=== PATIENT | female | born 1945 | race Caucasian/White ===

== ENCOUNTER 2017-05-07 09:51 | Emergency (ER) | payer MEDICARE, OTHER ==
--- NOTE | 2017-05-07 10:46 | EDM.PDOC ---
ED HPI GENERAL MEDICAL PROBLEM - General Chief Complaint: Lower Extremity Injury/Pain Stated Complaint: R FOOT INJURY Time Seen by Provider: 05/07/17 10:37 Source of Information: Reports: Patient History Limitations: Reports: No Limitations - History of Present Illness INITIAL COMMENTS - FREE TEXT/NARRATIVE: 71 y/o F with RLE injury. Was walking down steps and missed the last step, landing in an odd position on her R foot. States R foot and R knee twisted. She has pain in R knee, ankle, and foot. Able to bear weight but with some difficulty. Pain is mild at rest. Took aleve prior to coming in. Pain is sharp. Nonradiating. Worse with weight bearing, better with rest. No additional complaint. No additional injury or recent illness. Right Ankle Pain Score (Numeric/FACES): 3 - Related Data Allergies Allergy/AdvReac Type Severity Reaction Status Date / Time No Known Allergies Allergy Verified 05/07/17 10:16 Home Meds: Home Meds Ibuprofen 600 mg PO QID PRN #30 tablet 05/07/17 [Rx] LORazepam [Ativan] 0.5 mg PO Q12HR PRN 05/07/17 [History] Rosuvastatin [Crestor] 5 mg PO DAILY 05/07/17 [History] chlorproMAZINE [Thorazine] 30 mg PO DAILY 05/07/17 [History] oxyCODONE 5 mg PO QID PRN #24 tab 05/07/17 [Rx] Past Medical History - Past Health History Medical/Surgical History: Denies Medical/Surgical History HEENT History: Reports: Impaired Vision Cardiovascular History: Reports: High Cholesterol Psychiatric History: Reports: Anxiety - Past Surgical History GI Surgical History: Reports: Cholecystectomy Social & Family History - Family History Family Medical History: Noncontributory - Tobacco Use Smoking Status *Q: Never Smoker - Recreational Drug Use Recreational Drug Use: No Review of Systems - Review of Systems Review Of Systems: See Below Constitutional: Reports: No Symptoms Respiratory: Reports: No Symptoms Musculoskeletal: Reports: Leg Pain, Foot Pain Skin: Denies: Wound Neurological: Denies: Numbness, Tingling, Weakness ED EXAM, GENERAL - Physical Exam Exam: See Below Exam Limited By: No Limitations General Appearance: Alert, WD/WN, No Apparent Distress Eye Exam: Bilateral Eye: Normal Inspection Head: Atraumatic, Normocephalic Neck: Normal Inspection Respiratory/Chest: No Respiratory Distress Cardiovascular: Normal Peripheral Pulses Peripheral Pulses: 2+: Dorsalis Pedis (R) Extremities: Normal Inspection, Normal Range of Motion, Other (RLE: no knee effusion. Mild anterior TTP at patellar tendon insertion site, otherwise nontender. No tib/fib TTP. ankle with both medial and lateral malleolus TTP. no effusion. +mild diffuse midfoot TTP. no deformities or ecchymosis ) Neurological: Alert, Oriented, Normal Cognition, No Motor/Sensory Deficits Psychiatric: Normal Affect, Normal Mood Skin Exam: Warm, Dry, Intact, Normal Color, No Rash Course - Vital Signs Last Recorded V/S: Last Vital Signs Temp 36.4 C 05/07/17 10:12 Pulse 64 05/07/17 10:12 Resp 16 05/07/17 10:12 BP 132/68 05/07/17 10:12 Pulse Ox 95 05/07/17 10:12 - Orders/Labs/Meds Orders: Active Orders 24 hr Category Date Time Status Ankle Min 3V Rt [CR] Stat Exams 05/07/17 10:45 Taken Foot Comp Min 3V Rt [CR] Stat Exams 05/07/17 10:45 Taken Knee 3V Rt [CR] Stat Exams 05/07/17 10:45 Taken Tibia Fibula Rt [CR] Stat Exams 05/07/17 11:18 Taken DME for Discharge [COMM] Stat Oth 05/07/17 11:19 Ordered - Re-Assessments/Exams Free Text/Narrative Re-Assessment/Exam: 05/07/17 11:20 XR shows distal fibula fracture. XR foot/ankle and knee neg for additional injury. Will place in walking boot and follow up with ortho. Departure - Departure Time of Disposition: 11:51 Disposition: Home, Self-Care 01 Clinical Impression: Fracture of distal fibula Qualifiers: Encounter type: initial encounter Fracture type: closed Fracture morphology: unspecified fracture morphology Laterality: right Qualified Code(s): S82.831A - Other fracture of upper and lower end of right fibula, initial encounter for closed fracture - Discharge Information Prescriptions: Ibuprofen 600 mg PO QID PRN #30 tablet PRN Reason: Pain oxyCODONE 5 mg PO QID PRN #24 tab PRN Reason: Pain Referrals: Pascale Fitzpatrick MD [Primary Care Provider] - Forms: ED Department Discharge Additional Instructions: 1. Use walking boot until cleared by orthopedics 2. You may bear weight as tolerated. Use crutches as needed if it is painful to put weight on the foot. 3. Take ibuprofen and/or acetaminophen for pain. Take oxycodone as needed for severe pain. No driving or operating machinery when taking oxycodone - it may make you sleepy or confused. Use the lowest effective dose to adequately control your pain, this medication can be addictive when taken intermediate. 4. Follow up with the orthopedist of your choice for further care. Call [phone] if you'd like to schedule with a provider here. - My Orders Last 24 Hours: My Active Orders 05/07/17 10:45 Ankle Min 3V Rt [CR] Stat Foot Comp Min 3V Rt [CR] Stat Knee 3V Rt [CR] Stat 05/07/17 11:18 Tibia Fibula Rt [CR] Stat 05/07/17 11:19 DME for Discharge [COMM] Stat - Assessment/Plan Last 24 Hours: My Active Orders 05/07/17 10:45 Ankle Min 3V Rt [CR] Stat Foot Comp Min 3V Rt [CR] Stat Knee 3V Rt [CR] Stat 05/07/17 11:18 Tibia Fibula Rt [CR] Stat 05/07/17 11:19 DME for Discharge [COMM] Stat
--- NOTE | 2017-05-08 16:52 | CR ---
Right foot: Four views of the right foot were obtained. Comparison: No prior foot exam. Plantar spur is seen. Spur noted off the posterior calcaneus as well as calcification off the posterior calcaneus. Mild degenerative change is noted within the first MTP joint. Mild deformity is noted within the base of the proximal phalanx of the second toe with adjacent calcification which is felt compatible with old injury. Nothing acute is appreciated. Impression: 1. Findings as noted above. Nothing acute is appreciated on right foot study. Diagnostic code #2
--- NOTE | 2017-05-08 16:52 | CR ---
Right knee: AP, lateral and sunrise patellar views of the right knee were obtained. Comparison: No prior study. Mild medial joint space narrowing is seen. Mild degenerative change is noted within the patellofemoral joint. Equivocal lucent line on the sunrise view within the patella and difficult to exclude a nondisplaced fracture. Small joint effusion is seen. No additional bony abnormality is identified. Impression: 1. Difficult to completely exclude patellar fracture. CT exam could confirm or rule out if clinically needed. 2. Joint effusion and mild degenerative change. Diagnostic code #3
--- NOTE | 2017-05-08 16:52 | CR ---
Right tibia and fibula: Two views of the right tibia and fibula were obtained. Nondisplaced distal fibular fracture is seen. Mild degenerative change is noted within the knee. Calcaneal spurs are again seen. No additional bony abnormality is identified. Impression: 1. Nondisplaced distal fibular fracture and other incidental findings. Diagnostic code #2
--- NOTE | 2017-05-08 16:52 | CR ---
Right ankle: Four views of the right ankle were obtained. Comparison: No previous study. Fracture is identified within the distal fibula. Ankle mortise is symmetric. Plantar spur is noted. Spur noted off the posterior calcaneus as well as calcification within the distal Achilles tendon. No additional fracture or other abnormality is seen. Impression: 1. Nondisplaced fracture within the distal right fibula. 2. Other incidental findings. Diagnostic code #3
== END 2017-05-07 12:20 | disposition home or self-care (01) ==
LOC: JD.ED 09:51
DX: S82.831A Other fracture of upper and lower end of right fibula, initial encounter for closed fracture (principal); E78.00 Pure hypercholesterolemia, unspecified; F41.9 Anxiety disorder, unspecified; X50.1XXA Overexertion from prolonged static or awkward postures, initial encounter; W10.9XXA Fall (on) (from) unspecified stairs and steps, initial encounter; Z79.899 Other long term (current) drug therapy; Z90.49 Acquired absence of other specified parts of digestive tract
CPT/HCPCS: 73562-26-RT; 73562-RT; 73590-26-RT; 73590-RT; 73610-26-RT; 73610-RT; 73630-26-RT; 73630-RT; 99283; 99284

== ENCOUNTER 2019-09-13 15:51 | Emergency (ER) | payer MEDICARE, OTHER ==
[2019-09-13] MEDS ORDERED: Sodium Chloride 0.9% 1,000 ML IV SCH (16:00)
--- NOTE | 2019-09-13 16:05 | EDM.PDOC ---
ED HPI GENERAL MEDICAL PROBLEM - General Chief Complaint: Trauma Stated Complaint: [facility] Time Seen by Provider: 09/13/19 15:56 Source of Information: Reports: Patient, EMS History Limitations: Reports: Altered Mental Status - History of Present Illness INITIAL COMMENTS - FREE TEXT/NARRATIVE: 74-year-old female presents to the ED after reportedly falling down between 6 and 8 concrete stairs at the [place] [employer] [place] here in [place]. Apparently was witnessed by her grandson but he did not provide much information to the dye weigher. Apparently she was unconscious for a period of time. The patient is complaining of right head pain and right eye pain. She has amnesia for the event and has no recollection of what has happened to her. Paramedics have administered Zofran 4 mg IV. Apparently the patient is not known to be on any anticoagulants. She reportedly does wear eyeglasses which are not with her at this time. Onset: Today, Sudden Onset Date: 09/13/19 Onset Time: 15:25 Duration: Minutes: Location: Reports: Head, Face, Neck, Chest, Abdomen, Back Quality: Reports: Ache, Other (Patient is complaining of severe head pain and nausea. Right eye is markedly ecchymotic and swollen) Severity: Severe Improves with: Reports: None Worsens with: Reports: None Context: Reports: Trauma (Currently fell down between 6 and 8 concrete stairs at the ice [place] Denies: Activity, Exercise, Lifting, Sick Contact Associated Symptoms: Reports: Confusion. Denies: Chest Pain, Cough (Is a for the event.), cough w sputum, Diaphoresis, Fever/Chills, Nausea/Vomiting, Seizure, Shortness of Breath, Syncope Right Headache Pain Score (Numeric/FACES): 8 - Related Data Allergies Allergy/AdvReac Type Severity Reaction Status Date / Time No Known Allergies Allergy Verified 09/13/19 16:02 Home Meds: Home Meds Ibuprofen 600 mg PO QID PRN #30 tablet 05/07/17 [Rx] LORazepam [Ativan] 0.5 mg PO DAILY PRN 05/07/17 [History] Rosuvastatin [Crestor] 10 mg PO DAILY 05/07/17 [History] FLUoxetine [PROzac] 30 mg PO DAILY 09/18/18 [History] Ondansetron [Zofran ODT] 1 tab PO Q8H PRN #10 tab.dis 09/18/18 [Rx] Pantoprazole Sodium [Protonix] 20 mg PO DAILY PRN 09/13/19 [History] lisinopriL [Lisinopril] 10 mg PO DAILY 09/13/19 [History] Past Medical History - Past Health History Medical/Surgical History: Denies Medical/Surgical History HEENT History: Reports: Impaired Vision Cardiovascular History: Reports: High Cholesterol Gastrointestinal History: Reports: Hiatal Hernia Genitourinary History: Reports: Urinary Incontinence (stress incontinence) Musculoskeletal History: Reports: Fracture (right fibula) Psychiatric History: Reports: Anxiety Endocrine/Metabolic History: Reports: Obesity/BMI 30+, Other (See Below) (Prediabetes) - Past Surgical History HEENT Surgical History: Reports: Oral Surgery (wisdom teeth extraction), Tonsillectomy GI Surgical History: Reports: Cholecystectomy (1980s), Colonoscopy (x 3), EGD (x 1) Social & Family History - Family History Family Medical History: Noncontributory - Caffeine Use Caffeine Use: Reports: None - Living Situation & Occupation Living situation: Reports: , with Spouse Occupation: Retired Review of Systems - Review of Systems Review Of Systems: Unable To Obtain Reason Not Obtained: Patient is confused and disoriented to person place and time due ED EXAM, GENERAL - Physical Exam Exam: See Below Exam Limited By: Altered Mental Status (Due to closed head injury.) General Appearance: Anxious, Moderate Distress, Other (Vital signs show temperature of 36.1. Heart rate 92 and sinus respiratory of 16 O2 sats of 97% on room air. BP 1 elevated at 172/87.) Eye Exam: Right Eye: Conjunctival Injection (Mild on the right side without any subconjunctival hematoma.), Periorbital Changes (The right eye is already ecchymotic with the upper lid markedly swollen and the eye is closed. I cannot open it and she could see me reportedly. Obvious corneal or scleral injuries.), Bilateral Eye: PERRL (No gaze palsy) Nose: Nasal Swelling (Swelling over the bridge of the nose suggesting possible fracture. There is dried blood in the left nostril.) Throat/Mouth: Normal Inspection, Normal Oropharynx, Other (Trace blood posterior oropharynx. No evidence of dental or tongue injuries.) Head: Facial Swelling (As mentioned above right periorbital tissues are markedly swollen and ecchymotic with the right eye closed due to swelling into the soft tissues. This suggest underlying skull fracture), Other (Patient has a large hematoma over the right temporal parietal scalp superior to her ear. This area is very tender to touch. No open wounds or bleeding identified.) Neck: Other (Neck is immobilized in c-collar and will remain that way.) Respiratory/Chest: No Respiratory Distress, Lungs Clear, Normal Breath Sounds, Other (No overt signs of chest wall pain on examination although slight she seem to flinch a little bit on firm compression over her right lateral ribs. No subcutaneous emphysema. No sternal injury identified.) Cardiovascular: Normal Peripheral Pulses, Regular Rate, Rhythm, No Edema, No Gallop, No Murmur, No Rub Peripheral Pulses: 2+: Posterior Tibial (L), Posterior Tibial (R), Dorsalis Pedis (L), Dorsalis Pedis (R), 3+: Carotid (L), Carotid (R) GI/Abdominal: Normal Bowel Sounds, Soft, No Organomegaly, No Abnormal Bruit, No Mass, Pelvis Stable, Tender (Patient has tenderness in the epigastrium and right upper quadrant of the abdomen), Other. No: Guarding ( without peritoneal signs at this time.), Rigid, Rebound Back Exam: Vertebral Tenderness (Tenderness mid thoracic spine as well as lower thoracolumbar spine Rt side. Also pain on firm palpation of lumbar spine on the right side without hematoma or abrasion.), Other (Peripherally she will abrasions over the left scapula on logrolling.) Extremities: Other (Dried blood on the right wrist and hand. However she has full range of motion of wrist fingers pronation supination of both arms and no evidence of injuries to the shoulders or the acromioclavicular joints. Both clavicles are intact. Similarly lower extremity show no injuries to the ankles or knees. Is full unopposed range of motion I at both hips. Pelvis appears to be intact. Contusion appreciated over the left anterior superior iliac spine.) Neurological: Confused, Disoriented, Memory Loss Recent Events (Needs you for the event and asks over over again what is happened to her.), Other (Has good coma scale is 14 out of 15.) Psychiatric: Anxious Skin Exam: Warm, Dry, Intact, Normal Color, Ecchymosis (Vicente-face with marked swelling of the periorbital tissues right side.), Other (Durations left posterior shoulder) EKG INTERPRETATION EKG Date: 09/13/19 Time: 16:08 Rhythm: NSR Rate (Beats/Min): 88 [place]: LAD-Left [place] Deviation (Left axis deviation of -20 degrees) P-Wave: Present QRS: Other (Q waves in lead III and near Q wave in aVF. Consider possible old inferior wall myocardial infarction decreased voltage limb leads.) ST-T: Other (T wave flattening in lead III and aVF) QT: Prolonged (Minimally prolonged) EKG Interpretation Comments: ECG Course - Vital Signs Last Recorded V/S: Last Vital Signs Temp 36.1 C 09/13/19 16:03 Pulse 96 09/13/19 16:03 Resp 16 09/13/19 16:03 BP 174/93 H 09/13/19 16:03 Pulse Ox 96 09/13/19 16:03 - Orders/Labs/Meds Orders: Active Orders 24 hr Category Date Time Status Blood Glucose Check, Bedside [RC] ONETIME Care 09/13/19 15:58 Active EKG Documentation Completion [RC] STAT Care 09/13/19 15:57 Active Whitney Catheter Insertion [Insert Urinary Catheter] [OM. Care 09/13/19 17:00 Ordered PC] Q24H Urinary Catheter Assessment [RC] ASDIRECTED Care 09/13/19 16:55 Active CORONAVIRUS COVID-19 RAPID [MOLEC] Stat Lab 09/13/19 17:00 Received Sodium Chloride 0.9% [Normal Saline] 1,000 ml Med 09/13/19 16:00 Active IV ASDIRECTED Sodium Chloride 0.9% [Saline Flush] Med 09/13/19 16:17 Active 10 ml FLUSH ONETIME PRN levETIRAcetam [Keppra] 500 mg Med 09/13/19 17:22 Active Sodium Chloride 0.9% [Normal Saline] 100 ml IV ONETIME Medication Orders Sodium Chloride (Normal Saline) 1,000 mls @ 150 mls/hr IV ASDIRECTED BRENNA Last Admin: 09/13/19 16:15 Dose: 150 mls/hr Documented by: PEBBLES Levetiracetam 500 mg/ Sodium (Chloride) 105 mls @ 400 mls/hr IV ONETIME ONE Stop: 09/13/19 17:36 Last Admin: 09/13/19 17:30 Dose: 400 mls/hr Documented by: PEBBLES Sodium Chloride (Saline Flush) 10 ml FLUSH ONETIME PRN PRN Reason: Keep Vein Open Last Admin: 09/13/19 16:37 Dose: 10 ml Documented by: AUBREE Labs: Laboratory Tests 09/13/19 09/13/19 09/13/19 Range/Units 16:00 16:00 16:00 WBC 5.93 (3.98-10.04) K/mm3 RBC 5.04 (3.98-5.22) M/mm3 Hgb 14.5 D (11.2-15.7) gm/dl Hct 44.0 (34.1-44.9) % MCV 87.3 (79.4-94.8) fl MCH 28.8 (25.6-32.2) pg MCHC 33.0 (32.2-35.5) g/dl RDW Std Deviation 45.0 (36.4-46.3) fL Plt Count 300 (182-369) K/mm3 MPV 9.4 (9.4-12.3) fl Neutrophils % (Manual) 66 H (40-60) % Band Neutrophils % 0 (0-10) % Lymphocytes % (Manual) 26 (20-40) % Atypical Lymphs % 0 % Monocytes % (Manual) 4 (2-10) % Eosinophils % (Manual) 2 (0.7-5.8) % Basophils % (Manual) 2 H (0.1-1.2) Platelet Estimate Adequate Plt Morphology Comment Normal RBC Morph Comment Normal PT 10.6 (9.7-12.0) SECONDS INR 0.97 APTT 26 (22-31) SECONDS Sodium 138 (136-145) mEq/L Potassium 3.1 L (3.5-5.1) mEq/L Chloride 103 (98-107) mEq/L Carbon Dioxide 24 (21-32) mEq/L Anion Gap 14.1 (5-15) BUN 22 H (7-18) mg/dL Creatinine 1.0 (0.55-1.02) mg/dL Est Cr Clr Drug Dosing TNP Estimated GFR (MDRD) 54 (>60) mL/min BUN/Creatinine Ratio 22.0 H (14-18) Glucose 156 H (83-115) mg/dL Calcium 8.6 (8.5-10.1) mg/dL Magnesium 2.0 (1.8-2.4) mg/dl Total Bilirubin 0.3 (0.2-1.0) mg/dL AST 20 (15-37) U/L ALT 25 (14-59) U/L Alkaline Phosphatase 131 H (46-116) U/L Troponin I < 0.017 (0.00-0.056) ng/mL NT-Pro-B Natriuret Pep (0-450) pg/mL Total Protein 7.3 (6.4-8.2) g/dl Albumin 3.6 (3.4-5.0) g/dl Globulin 3.7 gm/dL Albumin/Globulin Ratio 1.0 (1-2) Urine Color (Yellow) Urine Appearance (Clear) Urine pH (5.0-8.0) Ur Specific [place] (1.005-1.030) Urine Protein (Negative) Urine Glucose (UA) (Negative) Urine Ketones (Negative) Urine Occult Blood (Negative) Urine Nitrite (Negative) Urine Bilirubin (Negative) Urine Urobilinogen (0.2-1.0) Ur Leukocyte Esterase (Negative) Urine RBC (0-5) /hpf Urine WBC (0-5) /hpf Ur Epithelial Cells (0-5) /hpf Urine Bacteria (FEW) /hpf Urine Mucus (FEW) /hpf 09/13/19 09/13/19 Range/Units 16:00 17:00 WBC (3.98-10.04) K/mm3 RBC (3.98-5.22) M/mm3 Hgb (11.2-15.7) gm/dl Hct (34.1-44.9) % MCV (79.4-94.8) fl MCH (25.6-32.2) pg MCHC (32.2-35.5) g/dl RDW Std Deviation (36.4-46.3) fL Plt Count (182-369) K/mm3 MPV (9.4-12.3) fl Neutrophils % (Manual) (40-60) % Band Neutrophils % (0-10) % Lymphocytes % (Manual) (20-40) % Atypical Lymphs % % Monocytes % (Manual) (2-10) % Eosinophils % (Manual) (0.7-5.8) % Basophils % (Manual) (0.1-1.2) Platelet Estimate Plt Morphology Comment RBC Morph Comment PT (9.7-12.0) SECONDS INR APTT (22-31) SECONDS Sodium (136-145) mEq/L Potassium (3.5-5.1) mEq/L Chloride (98-107) mEq/L Carbon Dioxide (21-32) mEq/L Anion Gap (5-15) BUN (7-18) mg/dL Creatinine (0.55-1.02) mg/dL Est Cr Clr Drug Dosing Estimated GFR (MDRD) (>60) mL/min BUN/Creatinine Ratio (14-18) Glucose (83-115) mg/dL Calcium (8.5-10.1) mg/dL Magnesium (1.8-2.4) mg/dl Total Bilirubin (0.2-1.0) mg/dL AST (15-37) U/L ALT (14-59) U/L Alkaline Phosphatase (46-116) U/L Troponin I (0.00-0.056) ng/mL NT-Pro-B Natriuret Pep 84 (0-450) pg/mL Total Protein (6.4-8.2) g/dl Albumin (3.4-5.0) g/dl Globulin gm/dL Albumin/Globulin Ratio (1-2) Urine Color Light yellow (Yellow) Urine Appearance Clear (Clear) Urine pH 6.5 (5.0-8.0) Ur Specific [place] 1.020 (1.005-1.030) Urine Protein Negative (Negative) Urine Glucose (UA) Negative (Negative) Urine Ketones Trace H (Negative) Urine Occult Blood Trace-lysed H (Negative) Urine Nitrite Negative (Negative) Urine Bilirubin Negative (Negative) Urine Urobilinogen 1.0 (0.2-1.0) Ur Leukocyte Esterase Negative (Negative) Urine RBC 0-5 (0-5) /hpf Urine WBC Not seen (0-5) /hpf Ur Epithelial Cells 0-5 (0-5) /hpf Urine Bacteria Rare (FEW) /hpf Urine Mucus Few (FEW) /hpf Meds: Medications Generic Name Dose Route Start Last Admin Trade Name Freq PRN Reason Stop Dose Admin Sodium Chloride 1,000 mls @ 150 mls/hr 09/13/19 16:00 09/13/19 16:15 Normal Saline IV 150 mls/hr ASDIRECTED BRENNA Administration Levetiracetam 500 mg/ Sodium 105 mls @ 400 mls/hr 09/13/19 17:22 09/13/19 17:30 Chloride IV 09/13/19 17:36 400 mls/hr ONETIME ONE Administration Sodium Chloride 10 ml 09/13/19 16:17 09/13/19 16:37 Saline Flush FLUSH 10 ml ONETIME PRN Administration Keep Vein Open Discontinued Medications Generic Name Dose Route Start Last Admin Trade Name Freq PRN Reason Stop Dose Admin Hydromorphone HCl 0.5 mg 09/13/19 16:54 09/13/19 17:10 Dilaudid IVPUSH 09/13/19 16:55 0.5 mg ONETIME ONE Administration Iopamidol 100 ml 09/13/19 16:17 09/13/19 16:37 Isovue-300 (61%) IVPUSH 09/13/19 16:18 100 ml ONETIME ONE Administration Lorazepam 0.5 mg 09/13/19 16:54 09/13/19 17:07 Ativan IV 09/13/19 16:55 0.5 mg ONETIME ONE Administration Ondansetron HCl 4 mg 09/13/19 16:06 09/13/19 16:15 Zofran IVPUSH 09/13/19 16:07 4 mg ONETIME ONE Administration - Radiology Interpretation Free Text/Narrative:: 4-year-old female presents to the ED per [facility]. The history suggest that she failed down a flight of between 6 and 8 concrete [place] ice [place]. Patient has amnesia for the event and cannot remember what has happened to her. She asked the same questions repeatedly indicating closed head injury with suspect concussion. She has marked periorbital ecchymosis of her entire right eye particularly upper eyelid but vision is intact. She has a large hematoma to the right parietal scalp with no open lacerations. Eyes in the ED on spine board and c-collar precautions. She has some tenderness elicited on compression of her right lower ribs and right upper quadrant of the abdomen. No guarding present. No evidence of extremity injury on exam. There is superficial contusions abrasions to the left upper back over the scapula. She is feeling very nauseated. Paramedics have administered Zofran 4 mg IV once this will be repeated in the ED. She will have CT head neck maxillofacial bones thoracic lumbar spine and CT chest abdomen pelvis with IV contrast. At this time she appears to have suffered a significant closed head injury. - Re-Assessments/Exams Free Text/Narrative Re-Assessment/Exam: 09/13/19 17:00: CT of the head reveals a fracture through the right temporal skull with traumatic frontoparietal subdural hematoma. Suspect contrecoup petechial hemorrhage left parietal brain as well. CT cervical spine reveals no fractures with normal alignment. There is associated degenerative changes particularly at C5-C6 facet joints bilaterally worse on the right side as compared to the left. CT of the thoracic spine does not reveal any acute fractures. CT of the lumbar spine reveals degenerative changes particularly throughout the lumbar 3 vertebra and lumbar 4 vertebra. There are fractures through the L1, L2, L3 transverse processes of the lumbar spine. CT chest abdomen pelvis also did not reveal any injuries to the underlying lung lung. No rib fractures identified. Great vessels and heart appear to be within normal limits. Small to moderate sized hiatal hernia. Liver is normal without any intraductal dilatation. Suspect mild fatty infiltration. Gallbladder is absent. Pancreas appears normal. Spleen appears normal. 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 No blood in the pelvis large amount of stool in the rectal vault. Uterus appears normal. No fractures in the pelvis. Evidence of significant degenerative arthritic change in both hips evident on CT without fracture. I am patient will be transferred to neurosurgical or at [facility] in [place]. Dr. Mcknight is the accepting neurosurgeon. Will be the patient will be flown to that institution 09/13/19 17:[address] Mcknight on-call neurosurgeon at [facility] in [place]. Is excepted care of this patient. He wants her to be seen through the ED and Dr. Garduno has accepted care through the ED. She will receive Keppra 500 mg IV to prevent any seizure activity from brain trauma. Be flown to that institution per airplane as the helicopter cannot fly at this time due to bad weather. Since oxygen saturations dipped after receiving Ativan 0.5 mg and Dilaudid 0.5 mg IV for anxiety and headache. Placed on oxygen at 2 L/min per nasal cannula. Departure - Departure Time of Disposition: 17:39 Disposition: DC/Tfer to Acute Hospital 02 Condition: Serious Clinical Impression: Concussion with brief (less than one hour) loss of consciousness Fall down stairs Qualifiers: Encounter type: initial encounter Qualified Code(s): W10.8XXA - Fall (on) (from) other stairs and steps, initial encounter Skull fracture, with loss of consciousness Qualifiers: Encounter type: initial encounter Traumatic intraparenchymal hemorrhage Qualifiers: Encounter type: initial encounter Loss of consciousness presence/duration: with LOC of 30 min or less Qualified Code(s): S06.301A - Unspecified focal traumatic brain injury with loss of consciousness of 30 minutes or less, initial encounter Lumbar transverse process fracture Qualifiers: Encounter type: initial encounter Fracture type: closed Qualified Code(s): S32.009A - Unspecified fracture of unspecified lumbar vertebra, initial encounter for closed fracture - Discharge Information *PRESCRIPTION DRUG MONITORING PROGRAM REVIEWED*: Not Applicable *COPY OF PRESCRIPTION DRUG MONITORING REPORT IN PATIENT ALEXEI: Not Applicable Referrals: Pascale Fitzpatrick MD [Primary Care Provider] - Forms: ED Department Discharge Additional Instructions: And transferred to [facility] in [place] under the care of Dr. Mcknight Department of neurosurgery due to closed head injury with a fracture in the right temporal and associated diffuse subdural hematoma Rt frontal brain. The hemorrhage extends to the frontoparietal junction. There is also minimal of extra-axial blood being seen in this area. This hemorrhage has an oblique AP dimension of 3.6 cm in craniocaudad dimension of 1.7 cm in oblique transverse measurement of 1.5 cm. Additional cortical contusion is seen more anteriorly within the frontal lobe. Very minimal subarachnoid blood is also noted within several sulci within the left temporal region. Extensive soft tissue swelling is noted around the right globe. Soft tissue hematoma is noted posteriorly within the right upper calvarial scalp. Sepsis Event Note (ED) - Focused Exam Vital Signs: Vital Signs Temp Pulse Resp BP Pulse Ox 09/13/19 16:03 36.1 C 96 16 174/93 H 96 09/13/19 15:58 36.1 C 92 16 172/87 H 97 - My Orders Last 24 Hours: My Active Orders 09/13/19 15:57 EKG Documentation Completion [RC] STAT 09/13/19 15:58 Blood Glucose Check, Bedside [RC] ONETIME 09/13/19 16:00 Sodium Chloride 0.9% [Normal Saline] 1,000 ml IV ASDIRECTED 09/13/19 16:17 Sodium Chloride 0.9% [Saline Flush] 10 ml FLUSH ONETIME PRN 09/13/19 16:55 Urinary Catheter Assessment [RC] ASDIRECTED 09/13/19 17:00 Whitney Catheter Insertion [Insert Urinary Catheter] [OM.PC] Q24H CORONAVIRUS COVID-19 RAPID [MOLEC] Stat 09/13/19 17:22 levETIRAcetam [Keppra] 500 mg Sodium Chloride 0.9% [Normal Saline] 100 ml IV ONETIME - Assessment/Plan Last 24 Hours: My Active Orders 09/13/19 15:57 EKG Documentation Completion [RC] STAT 09/13/19 15:58 Blood Glucose Check, Bedside [RC] ONETIME 09/13/19 16:00 Sodium Chloride 0.9% [Normal Saline] 1,000 ml IV ASDIRECTED 09/13/19 16:17 Sodium Chloride 0.9% [Saline Flush] 10 ml FLUSH ONETIME PRN 09/13/19 16:55 Urinary Catheter Assessment [RC] ASDIRECTED 09/13/19 17:00 Whitney Catheter Insertion [Insert Urinary Catheter] [OM.PC] Q24H CORONAVIRUS COVID-19 RAPID [MOLEC] Stat 09/13/19 17:22 levETIRAcetam [Keppra] 500 mg Sodium Chloride 0.9% [Normal Saline] 100 ml IV ONETIME
[2019-09-13] MEDS ORDERED: Ondansetron 4 MG/2 ML SDV IVPUSH ONE (16:06)
[2019-09-13] MEDS ORDERED: Sodium Chloride 0.9% 10 ML Syringe FLUSH PRN (16:17)
[2019-09-13] MEDS ORDERED: Iopamidol 612 MG/ML 100 ML Bottle IVPUSH ONE (16:17)
[2019-09-13] MEDS ORDERED: LORazepam 2 MG/ML SDV IV ONE (16:54)
[2019-09-13] MEDS ORDERED: HYDROmorphone 0.5 MG/0.5 ML Syringe IVPUSH ONE (16:54)
--- NOTE | 2019-09-13 17:13 | CT ---
CT facial bones Technique: Multiple axial sections through the facial bones were obtained. Reconstructed coronal and sagittal images were obtained. Findings: Retention cyst is noted within the left maxillary sinus measuring 1.5 cm in size. Minimal mucosal thickening is seen within the inferior right maxillary sinus. There is mucosal thickening seen within the ethmoid sinus and possible fluid level within the sphenoid sinus being noted. Mastoid sinuses are clear. Right and left globes are symmetric in size. Soft tissue swelling is off noted around the right orbit. No discrete facial bone fractures are seen. Impression: 1. Chronic sinus findings as well as possible small fluid level within the sphenoid sinus. Please exclude any symptoms of pre-existing acute sinusitis. 2. Soft tissue swelling. No acute fracture is appreciated within the facial bones. Diagnostic code #3 This report was dictated in MDT
--- NOTE | 2019-09-13 17:20 | CT ---
CT chest Technique: Multiple axial sections were obtained from above the lung apices inferiorly through the lung base. Intravenous contrast was utilized. Comparison: No prior chest imaging is available. Moderately large hiatal hernia is noted. No pericardial thickening is seen. Mild coronary artery calcification is noted. Atherosclerotic calcification seen within the thoracic aorta. No aneurysm is seen. Mediastinum shows no hematoma or adenopathy. Lung window settings show no acute parenchymal change. Calcified nodule is noted within the left upper lung measuring 7 mm in size compatible with granuloma. No other nodule is seen. No pleural effusions are noted. Bone window settings were reviewed which shows no acute osseous finding. Vertebral body heights and disc spaces are maintained. No sternal fracture is appreciated. Impression: 1. Moderately large hiatal hernia and calcified granuloma within left upper chest. 2. Nothing acute is appreciated on CT study of the chest. Diagnostic code #2 This report was dictated in MDT CT abdomen and pelvis Technique: Multiple axial sections were obtained from above the dome of the diaphragm inferiorly to the pubic symphysis. Intravenous contrast was utilized. No oral contrast has been given. Findings: Large left renal cyst is seen measuring 9.9 cm in size. No additional abnormality is seen within the kidneys. Adrenal glands show no nodule. Liver contains no focal parenchymal abnormality. Surgical clips are seen from prior cholecystectomy. Spleen appears within normal limits. Pancreas appears unremarkable. Aorta shows atherosclerotic calcification without aneurysm. No retroperitoneal adenopathy or mesenteric abnormalities are seen. No pelvic mass or adenopathy is seen. Slight increased stool within the rectum is noted. No free fluid or inflammatory change is seen. Mild degenerative change is scattered within the spine. Fractures are noted within the right transverse process of L1, L2 and L3. No other acute fracture is appreciated. Impression: 1. Fractures within the right transverse process of L1-L3. 2. Large left renal cyst measuring 9.9 cm. 3. Other findings believed to be incidental. No other acute abnormality is appreciated. Diagnostic code #3 This report was dictated in MDT
[2019-09-13] MEDS ORDERED: levETIRAcetam 500 MG in Sodium Chloride 0.9% 100 ML IV ONE (17:22)
--- NOTE | 2019-09-13 17:24 | CT ---
CT cervical spine Technique: Multiple axial sections were obtained from above C1 inferiorly to the top of T4. Reconstructed sagittal and coronal images were reviewed. Comparison: No prior cervical spine imaging is available. Findings: Mild disc space narrowing noted at C4-5. Moderate disc space narrowing noted at C5-6 and C6-7. Posterior osteophytes are seen at C4-5 through C6-7. Slight anterior osteophytes are noted at C4-5, C5-6 and C6-7. Vertebral body heights are maintained. Incomplete posterior arch of C1 is noted which is a normal variant. Moderate right-sided neural foraminal stenosis is noted at C5-6. No central canal stenosis is seen. No fracture is appreciated. No abnormal subluxation is seen. Mild ligamentum nuchal calcification is seen. Slight degenerative spurring is noted within the uncovertebral joints which is most prominent at C5-6 and C6-7. Impression: 1. Degenerative change as noted above. 2. No acute fracture or abnormal subluxation is appreciated on CT study of the cervical spine. Diagnostic code #2 This report was dictated in MDT
--- NOTE | 2019-09-13 17:28 | CT ---
Head CT Technique: Multiple axial sections through the brain were obtained. Intravenous contrast was utilized. Findings: Intraparenchymal hemorrhage is identified within the upper right frontal convexity extending to the frontoparietal junction. There is also a minimal amount of extra-axial blood being seen in this area. This hemorrhage has an oblique AP dimension of 3.6 cm and craniocaudal dimension of 1.7 cm and oblique transverse measurement of 1.5 cm. Additional cortical contusion is seen more anteriorly within the frontal lobe. Very minimal subarachnoid blood is noted within several sulci within the left temporal region. No additional intracranial hemorrhage is seen. Soft tissue swelling is noted around the right globe. Soft tissue hematoma is noted posteriorly within the upper right calvarial scalp. Mild areas of diminished density noted within the periventricular white matter compatible with mild small vessel ischemic demyelination change. Bone window settings were reviewed which show no acute calvarial abnormality. Impression: 1. Parenchymal hemorrhage within the upper right frontal convexity extending to the frontoparietal junction. Minimal extra-axial blood in this area seen. Additional cortical contusion seen more anteriorly within the upper right frontal cortex. 2. Minimal subarachnoid blood within several sulci within the left temporal region. 3. Mild senescent change. No acute calvarial abnormality is seen. Scalp hematoma. Diagnostic code #5 This report was dictated in MDT
--- NOTE | 2019-09-13 17:31 | CT ---
CT lumbar spine Technique: Multiple axial sections through the lumbar spine were obtained. Reconstructed coronal and sagittal images were reviewed. Findings: Vertebral body heights are maintained. Scattered disc space narrowing is noted with slight vacuum phenomena. Mild endplate irregularities are seen off the L4 vertebral body which are felt to be degenerative in etiology. Circumferential disc bulge is noted at L4-5 with planar posterior margin. Mild circumferential disc bulge at L3-4. No abnormal subluxation is seen. Fractures are again noted within the right transverse process at L1, L2 and L3. No additional lumbar spine fracture is seen. No abnormal subluxation is appreciated. Impression: 1. Mild degenerative change. 2. Transverse process fractures on the right side at L1-L3. 3. No other acute abnormality is seen on CT study of the lumbar spine. Diagnostic code #3 This report was dictated in MDT
--- NOTE | 2019-09-13 17:34 | CT ---
CT thoracic spine Technique: Multiple axial sections through the thoracic spine were obtained. Reconstructed coronal and sagittal images were obtained. Comparison: No prior thoracic spine imaging. Slight scattered end plate osteophytes are seen. Vertebral body heights are maintained. No fracture is seen. No abnormal subluxation is noted. No paravertebral soft tissue swelling is noted. Impression: 1. Slight degenerative change. 2. Nothing acute is appreciated on CT study of the thoracic spine. Diagnostic code #2 This report was dictated in MDT
== END 2019-09-13 17:45 ==
LOC: JD.ED 15:51
DX: S06.301A Unspecified focal traumatic brain injury with loss of consciousness of 30 minutes or less, initial encounter (principal); S02.91XA Unspecified fracture of skull, initial encounter for closed fracture; S32.019A Unspecified fracture of first lumbar vertebra, initial encounter for closed fracture; S32.029A Unspecified fracture of second lumbar vertebra, initial encounter for closed fracture; S32.039A Unspecified fracture of third lumbar vertebra, initial encounter for closed fracture; E78.00 Pure hypercholesterolemia, unspecified; Z79.899 Other long term (current) drug therapy; E66.9 Obesity, unspecified; F41.9 Anxiety disorder, unspecified; Z20.828 Contact with and (suspected) exposure to other viral communicable diseases; W10.9XXA Fall (on) (from) unspecified stairs and steps, initial encounter
CPT/HCPCS: 36415; 51702; 70450; 70486; 71260; 72125; 72128; 72131; 74177; 80053; 81001; 83735; 83880; 84484; 85007; 85027; 85610; 85730; 93005; 96361; 96374; 96375; 99285; J1170; J1953; J2060; J2405; J7030; J7050; Q9967; U0002; 93010

== ENCOUNTER 2022-04-16 19:17 | Emergency (ER) | payer MEDICARE, OTHER ==
[2022-04-16] MEDS ORDERED: Ibuprofen 600 MG Tab PO ONE (21:08)
[2022-04-16] MEDS ORDERED: Orphenadrine 100 MG Tab.ER PO STA (21:08)
== END 2022-04-16 21:30 | disposition home or self-care (01) ==
LOC: JD.ED 19:17
DX: M62.838 Other muscle spasm (principal); E78.00 Pure hypercholesterolemia, unspecified; E66.9 Obesity, unspecified; Z68.31 Body mass index [BMI] 31.0-31.9, adult; Z87.891 Personal history of nicotine dependence; Z79.899 Other long term (current) drug therapy
CPT/HCPCS: 99283; A9270; 99282

== ENCOUNTER 2023-01-06 06:03 | Emergency (ER) | payer MEDICARE, OTHER ==
[2023-01-06] MEDS ORDERED: Sodium Chloride 0.9% 10 ML Syringe FLUSH PRN (06:20)
[2023-01-06] MEDS ORDERED: Alum Hydrox/Mag Hydrox/Simeth 30 ML, Lidocaine 2% 15 ML PO ONE ×2 (06:21)
[2023-01-06] MEDS ORDERED: Ketorolac 15 MG/ML SDV IVPUSH ONE (06:32)
[2023-01-06 06:38] LABS: BASOPHILS ABSOLUTE AUTO 0.1 K/mm3 (0.0-0.2); BASOPHILS PERCENT AUTO 0.9 % (0.0-1.0); EOSINOPHILS ABSOLUTE AUTO 0.2 K/mm3 (0.0-0.4); EOSINOPHILS PERCENT AUTO 2.7 % (0.0-6.0); HEMATOCRIT 45.7 % (37.0-47.0); HEMOGLOBIN 15.2 gm/dl (12.0-16.0); IMMATURE GRAN ABSOLUTE AUTO 0.01 K/mm3 (0.00-0.05); IMMATURE GRAN PERCENT AUTO 0.2 % (0.0-0.4); LYMPHOCYTES ABSOLUTE AUTO 1.2 K/mm3 (1.0-4.8); LYMPHOCYTES PERCENT AUTO 20.7 % (24.0-44.0); MEAN CORPUSCULAR HEMOGLOBIN 30.1 pg (28.0-32.0); MEAN CORPUSCULAR HGB CONC 33.3 g/dl (32.0-36.0); MEAN CORPUSCULAR VOLUME 90.5 fl (83.0-99.0); MEAN PLATELET VOLUME 8.9 fl (9.4-12.3); MONOCYTES ABSOLUTE AUTO 0.5 K/mm3 (0.0-0.8); MONOCYTES PERCENT AUTO 8.8 % (0.0-8.0); NEUTROPHILS ABSOLUTE AUTO 3.9 K/mm3 (1.8-7.7); NEUTROPHILS PERCENT AUTO 66.7 % (41.0-71.0); PLATELET COUNT,PLT 268 K/mm3 (150-400); RED BLOOD CELL COUNT 5.05 M/mm3 (4.10-5.30); WHITE BLOOD CELL COUNT,WBC 5.88 K/mm3 (3.9-11.3)
[2023-01-06 06:52] LABS: A/G RATIO 0.9 (1-2); ALBUMIN 3.6 g/dl (3.4-5.0); ANION GAP 12.2 (5-15); BILIRUBIN TOTAL 0.5 mg/dL (0.2-1.0); BUN/CREATININE RATIO 15.6 (14-18); CALCIUM 8.8 mg/dL (8.5-10.1); CREATININE 0.9 mg/dL (0.55-1.02); EST CRCL DRUG DOSING (CG) 45.61 mL/min; POTASSIUM,K 4.2 mEq/L (3.5-5.1); PROTEIN TOTAL,TP 7.5 g/dl (6.4-8.2)
[2023-01-06] MEDS ORDERED: Iopamidol 755 Mg/ML 100 ML Bottle IVPUSH ONE (07:13)
[2023-01-06] MEDS ORDERED: Sodium Chloride 0.9% 10 ML Syringe FLUSH ONE (07:13)
[2023-01-06] MEDS ORDERED: Sodium Chloride 0.9% 100 ML IV SCH (07:15)
== END 2023-01-06 08:26 | disposition home or self-care (01) ==
LOC: JD.ED 06:03
DX: R07.81 Pleurodynia (principal); E78.00 Pure hypercholesterolemia, unspecified; E66.9 Obesity, unspecified; Z86.16 Personal history of COVID-19; Z79.899 Other long term (current) drug therapy; Z68.30 Body mass index [BMI] 30.0-30.9, adult
CPT/HCPCS: 36415; 71045; 71275; 80053; 84484; 85025; 85379; 93005; 96374; 99285; A9270; J1885; J3490; Q9967; 93010; 99284

== ENCOUNTER 2024-08-07 10:41 | Emergency (ER) | payer MEDICARE ==
[2024-08-07] MEDS ORDERED: Sodium Chloride 0.9% 10 ML Syringe FLUSH PRN (11:09)
[2024-08-07 11:30] LABS: BASOPHILS PERCENT AUTO 0.4 % (0.0-1.0); EOSINOPHILS PERCENT AUTO 0.5 % (0.0-6.0); HEMATOCRIT 38.2 % (37.0-47.0); IMMATURE GRAN ABSOLUTE AUTO 0.02 K/mm3 (0.00-0.05); IMMATURE GRAN PERCENT AUTO 0.3 % (0.0-0.4); LYMPHOCYTES ABSOLUTE AUTO 0.7 K/mm3 (1.0-4.8); MEAN CORPUSCULAR HEMOGLOBIN 29.4 pg (28.0-32.0); MEAN PLATELET VOLUME 9.2 fl (9.4-12.3); MONOCYTES ABSOLUTE AUTO 0.6 K/mm3 (0.0-0.8); MONOCYTES PERCENT AUTO 7.3 % (0.0-8.0); NEUTROPHILS ABSOLUTE AUTO 6.6 K/mm3 (1.8-7.7); NEUTROPHILS PERCENT AUTO 82.5 % (41.0-71.0); PLATELET COUNT,PLT 246 K/mm3 (150-400); RED BLOOD CELL COUNT 4.29 M/mm3 (4.10-5.30); WHITE BLOOD CELL COUNT,WBC 7.98 K/mm3 (3.9-11.3)
[2024-08-07 11:34] LABS: HEMOGLOBIN 12.6 gm/dl (12.0-16.0)
[2024-08-07] MEDS: Sodium Chloride 0.9% 100 ML IV SCH (11:40)
[2024-08-07] MEDS: Sodium Chloride 0.9% 10 ML Syringe FLUSH PRN (11:40)
[2024-08-07] MEDS: Iopamidol 755 Mg/ML 100 ML Bottle IVPUSH ONE (11:40)
[2024-08-07 11:54] LABS: PROTHROMBIN TIME 10.6 SECONDS (9.7-12.0)
[2024-08-07 11:55] LABS: PTT,PARTIAL THROMBOPLSTIN TIME 24.5 SECONDS (21.7-31.4)
[2024-08-07 11:59] LABS: ALBUMIN 3.5 g/dl (3.4-5.0); ANION GAP 11.5 (5-15); BILIRUBIN TOTAL 0.2 mg/dL (0.2-1.0); CALCIUM 9.1 mg/dL (8.5-10.1); EST CRCL DRUG DOSING (CG) 39.7 mL/min; POTASSIUM,K 4.5 mEq/L (3.5-5.1)
== END 2024-08-07 15:15 | disposition home or self-care (01) ==
LOC: JD.ED 10:41
DX: H57.02 Anisocoria (principal); I10 Essential (primary) hypertension; E66.9 Obesity, unspecified; Z79.82 Long term (current) use of aspirin; Z79.899 Other long term (current) drug therapy; Z79.84 Long term (current) use of oral hypoglycemic drugs; Z86.16 Personal history of COVID-19
CPT/HCPCS: 36415; 70450; 70496; 70498; 80053; 82947; 84484; 85025; 85610; 85730; 93005; 99284; Q9967; 93010